=== PATIENT | male | born 1955 | race Caucasian/White ===

== ENCOUNTER 2016-11-03 10:30 | Emergency (ER) | payer BC ==
[2016-11-03] MEDS ORDERED: Sodium Chloride 0.9% 5 ML Syringe FLUSH PRN (10:51)
[2016-11-03 11:30] LABS: CHLORIDE,CL 106 mmol/L (98-115); SODIUM,NA 143 mmol/L (136-145)
[2016-11-03 11:36] VITALS: BP 178/86
[2016-11-03] MEDS ORDERED: Potassium Chloride 20 MEQ Tab.ER PO ONE (11:41)
--- NOTE | 2016-11-03 12:10 | EDM.PDOC ---
ED HPI GENERAL MEDICAL PROBLEM - General Chief Complaint: General Time Seen by Provider: 11/03/16 11:16 Source of Information: Reports: Patient History Limitations: Reports: No Limitations - History of Present Illness INITIAL COMMENTS - FREE TEXT/NARRATIVE: PT STATES HE DEVELOPED LOWER EXTREMITY WEAKNESS OVER PAST FEW DAYS AND BECAME WORSE TODAY. DENIES CP, SOB, CRUM, VISION CHANGES, OR SPEECH DIFFICULTY Onset: Today Location: Reports: Lower Extremity, Left, Lower Extremity, Right Severity: Mild Improves with: Reports: None Worsens with: Reports: None Associated Symptoms: Reports: No Other Symptoms - Related Data Allergies Allergy/AdvReac Type Severity Reaction Status Date / Time Iodinated Contrast- Oral and Allergy Airway Verified 11/03/16 10:41 IV Dye Tightness iodine Allergy Other Verified 11/03/16 10:41 contrast dye Allergy Severe Airway Uncoded 12/30/15 09:38 Tightness Home Meds: Home Meds Simvastatin [Zocor] 20 mg PO BEDTIME 08/27/13 [History] traZODone 75 mg PO BEDTIME 08/27/13 [History] Albuterol/Ipratropium [DuoNeb 3.0-0.5 MG/3 ML] 3 ml NEB BIDRT PRN 09/24/14 [ History] Lisinopril 40 mg PO BID 09/24/14 [History] PARoxetine [Paxil] 10 mg PO BEDTIME 09/24/14 [History] Triamcinolone Acetonide [Triamcinolone Acetonide 0.1% Crm] 15 gm TOP DAILY 09/24 [History] amLODIPine [Norvasc] 10 mg PO DAILY 09/24/14 [History] Tamsulosin [Flomax] 0.4 mg PO PCBREAKFAST #30 cap.er 01/06/15 [Rx] L.acidoph,Paracasei, B.lactis [Probiotic] 1 each PO DAILY 03/19/15 [History] Albuterol [Ventolin HFA] 2 puff INH Q4H PRN 11/03/16 [History] Potassium Chloride 20 meq PO BID 11/03/16 [History] Past Medical History HEENT History: Reports: Cataract Cardiovascular History: Reports: High Cholesterol, Hypertension Respiratory History: Reports: COPD, Sleep Apnea Gastrointestinal History: Reports: None Genitourinary History: Reports: BPH Musculoskeletal History: Reports: Back Pain, Chronic Neurological History: Reports: Other (See Below) Other Neuro History: dizziness Psychiatric History: Reports: Depression Hematologic History: Reports: Other (See Below) Other Hematologic History: hypokalemia Other Dermatologic History: eczemza - Infectious Disease History Infectious Disease History: Reports: Chicken Pox, Influenza, Measles, Mumps, Shingles - Past Surgical History HEENT Surgical History: Reports: Cataract Surgery Cardiovascular Surgical History: Reports: Other (See Below) GI Surgical History: Reports: Colonoscopy, EGD, Hernia Repair/Other Social & Family History - Family History Family Medical History: Noncontributory - Tobacco Use Smoking Status *Q: Current Every Day Smoker Years of Tobacco use: 45 Packs/Tins Daily: 1 Used Tobacco, but Quit: No Month Tobacco Last Used: 2009 Second Hand Smoke Exposure: Yes - Caffeine Use Caffeine Use: Reports: Coffee - Recreational Drug Use Recreational Drug Use: Yes Drug Use in Last 12 Months: Yes Recreational Drug Type: Reports: Marijuana/Hashish Recreational Drug Use Frequency: Weekly Recreational Drug Last Use: Pt. states a couple times a week- - Living Situation & Occupation Living situation: Reports: Occupation: Retired ED ROS GENERAL - Review of Systems Review Of Systems: ROS reveals no pertinent complaints other than HPI. Constitutional: Reports: No Symptoms HEENT: Reports: No Symptoms Respiratory: Reports: No Symptoms Cardiovascular: Reports: No Symptoms Endocrine: Reports: No Symptoms GI/Abdominal: Reports: No Symptoms : Reports: No Symptoms Musculoskeletal: Reports: No Symptoms Skin: Reports: No Symptoms Neurological: Reports: Difficulty Walking, Weakness Psychiatric: Reports: No Symptoms Hematologic/Lymphatic: Reports: No Symptoms Immunologic: Reports: No Symptoms ED EXAM, GENERAL - Physical Exam Exam: See Below Exam Limited By: No Limitations General Appearance: Alert, WD/WN, No Apparent Distress Eye Exam: Bilateral Eye: Normal Inspection Throat/Mouth: Normal Inspection, Normal Oropharynx, No Airway Compromise Head: Atraumatic, Normocephalic Neck: Normal Inspection, Supple, Non-Tender, Full Range of Motion Respiratory/Chest: No Respiratory Distress, Lungs Clear, Normal Breath Sounds, No Accessory Muscle Use, Chest Non-Tender Cardiovascular: Regular Rate, Rhythm, No Murmur Back Exam: Normal Inspection Extremities: Normal Inspection, Normal Range of Motion, Non-Tender, No Pedal Edema Neurological: Alert, Oriented, CN II-XII Intact, Normal Cognition, No Motor/ Sensory Deficits Psychiatric: Normal Affect, Normal Mood Skin Exam: Warm, Dry, Intact, Normal Color, No Rash Lymphatic: No Adenopathy Course - Vital Signs Last Recorded V/S: Last Vital Signs Temp 98.9 F 11/03/16 10:37 Pulse 80 11/03/16 10:37 Resp 20 11/03/16 10:37 BP 178/86 H 11/03/16 10:37 Pulse Ox 96 11/03/16 10:37 - Orders/Labs/Meds Orders: Active Orders 24 hr Category Date Time Status Sodium Chloride 0.9% [Syrex Flush] Med 11/03/16 10:51 Active 5 ml FLUSH Q8HR PRN Saline Lock Insert [OM.PC] Routine Oth 11/03/16 10:51 Ordered Medication Orders Sodium Chloride (Syrex Flush) 5 ml FLUSH Q8HR PRN PRN Reason: Keep Vein Open Labs: Laboratory Tests 11/03/16 11/03/16 11/03/16 Range/Units 11:05 11:05 11:40 WBC 7.6 (5.0-10.0) 10^3/uL RBC 5.16 (4.50-6.00) 10^6/uL Hgb 15.3 (13.0-17.0) g/dL Hct 45.4 (40.0-52.0) % MCV 87.9 (82.0-92.0) fL MCH 29.7 (27.0-31.0) pg MCHC 33.7 (32.0-36.0) g/dL RDW 13.3 (11.5-14.5) % Plt Count 185 (150-300) 10^3/uL MPV 7.8 (7.4-10.4) fL Neut % (Auto) 67.7 (50.0-70.0) % Lymph % (Auto) 18.6 L (20.0-40.0) % [place] % (Auto) 9.6 H (2.0-8.0) % Eos % (Auto) 3.6 H (1.0-3.0) % Baso % (Auto) 0.5 (0.0-1.0) % Neut # (Auto) 5.2 (2.5-7.0) 10^3/uL Lymph # (Auto) 1.4 (1.0-4.0) 10^3/uL [place] # (Auto) 0.7 (0.1-0.8) 10^3/uL Eos # (Auto) 0.3 (0.1-0.3) 10^3/uL Baso # (Auto) 0.0 (0.0-0.1) 10^3/uL Sodium 143 (136-145) mmol/L Potassium 3.2 L (3.3-5.3) mmol/L Chloride 106 (98-115) mmol/L Carbon Dioxide 25.6 (21.0-32.0) mmol/L BUN 9 (6-25) mg/dL Creatinine 0.65 (0.51-1.17) mg/dL Est Cr Clr Drug Dosing TNP Estimated GFR (MDRD) > 60 mL/min Glucose 144 H (70-110) mg/dL Calcium 9.0 (8.7-10.3) mg/dL Total Bilirubin 0.4 (0.2-1.0) mg/dL AST 16 (15-37) U/L ALT 22 (12-78) U/L Alkaline Phosphatase 118 H (46-116) IU/L Total Protein 7.4 (6.4-8.2) g/dL Albumin 4.09 (3.00-4.80) g/dL Specimen Type Urinvoid Urine Color Yellow (YELLOW) Urine Appearance Clear (CLEAR) Urine pH 7.5 (5.0-9.0) Ur Specific Foss 1.020 (1.005-1.030) Urine Protein Negative (NEGATIVE) mg/dL Urine Glucose (UA) Negative (NEGATIVE) mg/dL Urine Ketones Negative (NEGATIVE) mg/dL Urine Occult Blood Trace-intact H (NEGATIVE) Urine Nitrite Negative (NEGATIVE) Urine Bilirubin Negative (NEGATIVE) Urine Urobilinogen 0.2 (0.2-1.0) E.U./dL Ur Leukocyte Esterase Negative (NEGATIVE) Urine RBC 0-5 /HPF Urine WBC 0-5 /HPF Ur Epithelial Cells Rare /LPF Urine Bacteria Occasional (NONE TO FEW) /HPF Urine Mucus Few H (NEGATIVE) /LPF Meds: Medications Generic Name Dose Route Start Last Admin Trade Name Freq PRN Reason Stop Dose Admin Sodium Chloride 5 ml 11/03/16 10:51 Syrex Flush FLUSH Q8HR PRN Keep Vein Open Discontinued Medications Generic Name Dose Route Start Last Admin Trade Name Caitlin PRN Reason Stop Dose Admin Potassium Chloride 40 meq 11/03/16 11:41 11/03/16 12:00 Klor-Con M20 PO 11/03/16 11:42 40 meq ONETIME ONE Administration - Re-Assessments/Exams Free Text/Narrative Re-Assessment/Exam: 11/03/16 12:11 PT AFEBRILE, NONTOXIC APPEARING, VSS, K+GIVEN. Departure - Departure Time of Disposition: 12:12 Disposition: Home, Self-Care 01 Condition: Good Clinical Impression: Hypokalemia Lower extremity weakness Qualifiers: Laterality: bilateral Qualified Code(s): R29.898 - Other symptoms and signs involving the musculoskeletal system - Discharge Information Instructions: Potassium Content of Foods, Hypokalemia, Muscle Cramps and Spasms , [id number] Referrals: Stacey Cohen MD [Primary Care Provider] - Additional Instructions: FOLLOW UP WITH DR HUANG IN NEXT 2-3 DAYS. RETURN TO ER SOONER IF SYMPTOMS CONTINUE - My Orders Last 24 Hours: My Active Orders 11/03/16 10:51 Sodium Chloride 0.9% [Syrex Flush] 5 ml FLUSH Q8HR PRN Saline Lock Insert [OM.PC] Routine - Assessment/Plan Last 24 Hours: My Active Orders 11/03/16 10:51 Sodium Chloride 0.9% [Syrex Flush] 5 ml FLUSH Q8HR PRN Saline Lock Insert [OM.PC] Routine Assessment:: HYPOKALEMIA / LEG WEAKNESS Plan: F/U AT CLINIC
== END 2016-11-03 12:25 | disposition home or self-care (01) ==
LOC: KA.ED 10:30
DX: R29.898 Other symptoms and signs involving the musculoskeletal system (principal); E87.6 Hypokalemia; I10 Essential (primary) hypertension; J44.9 Chronic obstructive pulmonary disease, unspecified; F32.9 Major depressive disorder, single episode, unspecified; E78.00 Pure hypercholesterolemia, unspecified; F17.210 Nicotine dependence, cigarettes, uncomplicated; Z91.041 Radiographic dye allergy status; Z79.899 Other long term (current) drug therapy
CPT/HCPCS: 80053; 81001; 85025; 99283; A9270

== ENCOUNTER 2017-08-14 18:17 | Emergency (ER) | payer BC ==
[2017-08-14] MEDS ORDERED: Albuterol/Ipratropium 3.0-0.5 MG/3 ML Neb Soln NEB ONE (18:41)
[2017-08-14] MEDS ORDERED: Sodium Chloride 0.9% 5 ML Syringe FLUSH PRN (18:46)
--- NOTE | 2017-08-14 18:58 | EDM.PDOC ---
ED HPI GENERAL MEDICAL PROBLEM - General Chief Complaint: Respiratory Problem Stated Complaint: SHORTNESS OF BREATH Time Seen by Provider: 08/14/17 18:40 Source of Information: Reports: Patient History Limitations: Reports: No Limitations - History of Present Illness INITIAL COMMENTS - FREE TEXT/NARRATIVE: Patient is a 61-year-old gentleman who presents to the emergency department this evening with a complaint of shortness of breath. Patient states that symptoms began about 3 days ago and is progressively getting worse. States that shortness of breath began with ambulation few days ago, but now seems to be all the time. Admits to cough with clear sputum production. Smokes 1-1/2 packs of cigarettes per day and has a history of COPD. Patient denies chest pain, fever, shortness of breath, extremity edema, nausea, vomiting, or recent change in medication. Onset: Gradual Duration: Day(s): Quality: Reports: Other (No chest pain) Severity: Mild Improves with: Reports: Rest Worsens with: Reports: Other (Ambulation) Context: Reports: Exercise Associated Symptoms: Reports: Cough, cough w sputum, Shortness of Breath. Denies: Chest Pain, Fever/Chills, Nausea/Vomiting Treatments DETECTIVE LIEUTENANT: Reports: Other Medication(s) Other Treatments DETECTIVE LIEUTENANT: neb treatments - Related Data Allergies Allergy/AdvReac Type Severity Reaction Status Date / Time Iodinated Contrast- Oral and Allergy Airway Verified 08/14/17 18:40 IV Dye Tightness iodine Allergy Other Verified 08/14/17 18:40 contrast dye Allergy Severe Airway Uncoded 12/30/15 09:38 Tightness Home Meds: Home Meds Simvastatin [Zocor] 20 mg PO BEDTIME 08/27/13 [History] traZODone 75 mg PO BEDTIME 08/27/13 [History] Albuterol/Ipratropium [DuoNeb 3.0-0.5 MG/3 ML] 3 ml NEB BIDRT PRN 09/24/14 [ History] Lisinopril 40 mg PO BID 09/24/14 [History] PARoxetine [Paxil] 10 mg PO BEDTIME 09/24/14 [History] Triamcinolone Acetonide [Triamcinolone Acetonide 0.1% Crm] 15 gm TOP DAILY 09/24 [History] amLODIPine [Norvasc] 10 mg PO DAILY 08/09/15 [History] Tamsulosin [Flomax] 0.4 mg PO PCBREAKFAST #30 cap.er 01/06/15 [Rx] L.acidoph,Paracasei, B.lactis [Probiotic] 1 each PO DAILY 03/19/15 [History] Potassium Chloride 20 meq PO BID 11/03/16 [History] predniSONE [Prednisone] 20 mg PO DAILY #5 tablet 08/14/17 [Rx] Past Medical History HEENT History: Reports: Cataract Cardiovascular History: Reports: High Cholesterol, Hypertension Respiratory History: Reports: COPD, Sleep Apnea Gastrointestinal History: Reports: None Genitourinary History: Reports: BPH Musculoskeletal History: Reports: Back Pain, Chronic Neurological History: Reports: Other (See Below) Other Neuro History: dizziness Psychiatric History: Reports: Depression Hematologic History: Reports: Other (See Below) Other Hematologic History: hypokalemia Other Dermatologic History: eczemza - Infectious Disease History Infectious Disease History: Reports: Chicken Pox, Influenza, Measles, Mumps, Shingles - Past Surgical History HEENT Surgical History: Reports: Cataract Surgery Cardiovascular Surgical History: Reports: Other (See Below) GI Surgical History: Reports: Colonoscopy, EGD, Hernia Repair/Other Social & Family History - Family History Family Medical History: Noncontributory - Caffeine Use Caffeine Use: Reports: Coffee - Living Situation & Occupation Living situation: Reports: Occupation: Retired ED ROS GENERAL - Review of Systems Review Of Systems: ROS reveals no pertinent complaints other than HPI. Constitutional: Reports: No Symptoms HEENT: Reports: No Symptoms Respiratory: Reports: Shortness of Breath, Cough, Sputum. Denies: Pleuritic Chest Pain Cardiovascular: Reports: No Symptoms. Denies: Chest Pain Endocrine: Reports: No Symptoms GI/Abdominal: Reports: No Symptoms : Reports: No Symptoms Musculoskeletal: Reports: No Symptoms Skin: Reports: No Symptoms Neurological: Reports: No Symptoms Psychiatric: Reports: No Symptoms Hematologic/Lymphatic: Reports: No Symptoms Immunologic: Reports: No Symptoms ED EXAM, GENERAL - Physical Exam Exam: See Below Exam Limited By: No Limitations General Appearance: Alert, WD/WN, No Apparent Distress Nose: Normal Inspection, Normal Mucosa, No Blood Throat/Mouth: Normal Inspection, Normal Oropharynx, No Airway Compromise Head: Atraumatic, Normocephalic Neck: Normal Inspection, Supple Respiratory/Chest: No Respiratory Distress, Decreased Breath Sounds (Bibasilar) Cardiovascular: Regular Rate, Rhythm, No Murmur GI/Abdominal: Normal Bowel Sounds, Soft, Non-Tender Back Exam: Normal Inspection. No: CVA Tenderness (L), CVA Tenderness (R) Extremities: Normal Inspection, No Pedal Edema Neurological: Alert, Oriented, Normal Cognition Psychiatric: Normal Affect, Normal Mood Skin Exam: Warm, Dry, Intact, Normal Color, No Rash Lymphatic: No Adenopathy Course - Vital Signs Last Recorded V/S: Last Vital Signs Temp 97.0 F 08/14/17 18:31 Pulse 78 08/14/17 18:31 Resp 22 H 08/14/17 18:31 BP 178/74 H 08/14/17 18:31 Pulse Ox 93 L 08/14/17 18:31 - Orders/Labs/Meds Orders: Active Orders 24 hr Category Date Time Status Peripheral IV Care [RC] . DIRECTED Care 08/14/17 18:46 Ordered RT Aerosol Therapy [RC] ASDIRECTED Care 08/14/17 18:42 Ordered Chest 2V [CR] Stat Exams 08/14/17 18:41 Ordered B-TYPE NATRIURETIC PEPTIDE,BNP [CHEM] Stat Lab 08/14/17 18:41 Ordered CBC WITH AUTO DIFF [HEME] Stat Lab 08/14/17 18:41 Ordered COMPREHENSIVE METABOLIC PN,CMP [CHEM] Stat Lab 08/14/17 18:41 Ordered Sodium Chloride 0.9% [Syrex Flush] Med 08/14/17 18:46 Ordered 5 ml FLUSH Q8HR PRN Peripheral IV Insertion Adult [OM.PC] Routine Oth 08/14/17 18:46 Ordered Meds: Medications Discontinued Medications Generic Name Dose Route Start Last Admin Trade Name Freq PRN Reason Stop Dose Admin Albuterol/Ipratropium 3 ml 08/14/17 18:41 Duoneb 3.0-0.5 Mg/3 Ml NEB 08/14/17 18:42 ONETIME ONE - Radiology Interpretation Free Text/Narrative:: Chest x-ray shows COPD without pneumonia or edema - Re-Assessments/Exams Free Text/Narrative Re-Assessment/Exam: 08/14/17 19:56 Patient afebrile, nontoxic appearing, vital signs stable, sats 95% on room air. Patient feels much better following albuterol Atrovent updraft and Solu- Medrol IV. Patient denies any chest pain. Patient be given a prescription for prednisone and follow-up at the clinic next week. Departure - Departure Time of Disposition: 19:57 Disposition: Home, Self-Care 01 Condition: Good Clinical Impression: COPD with acute exacerbation - Discharge Information Instructions: Chronic Obstructive Pulmonary Disease Exacerbation, [id number] Referrals: Stacey Cohen MD [Primary Care Provider] - Additional Instructions: Follow-up at clinic next week. Return to emergency department sooner if symptoms continue or worsen. - My Orders Last 24 Hours: My Active Orders 08/14/17 18:41 Chest 2V [CR] Stat B-TYPE NATRIURETIC PEPTIDE,BNP [CHEM] Stat CBC WITH AUTO DIFF [HEME] Stat COMPREHENSIVE METABOLIC PN,CMP [CHEM] Stat 08/14/17 18:42 RT Aerosol Therapy [RC] ASDIRECTED 08/14/17 18:46 Peripheral IV Care [RC] . DIRECTED Sodium Chloride 0.9% [Syrex Flush] 5 ml FLUSH Q8HR PRN Peripheral IV Insertion Adult [OM.PC] Routine - Assessment/Plan Last 24 Hours: My Active Orders 08/14/17 18:41 Chest 2V [CR] Stat B-TYPE NATRIURETIC PEPTIDE,BNP [CHEM] Stat CBC WITH AUTO DIFF [HEME] Stat COMPREHENSIVE METABOLIC PN,CMP [CHEM] Stat 08/14/17 18:42 RT Aerosol Therapy [RC] ASDIRECTED 08/14/17 18:46 Peripheral IV Care [RC] . DIRECTED Sodium Chloride 0.9% [Syrex Flush] 5 ml FLUSH Q8HR PRN Peripheral IV Insertion Adult [OM.PC] Routine Assessment:: COPD exacerbation Plan: Follow-up at the clinic next week
[2017-08-14] MEDS ORDERED: methylPREDNISolone Sodium Succinate 125 MG/2 ML SDV IVPUSH ONE (19:12)
[2017-08-14 19:14] LABS: CHLORIDE,CL 105 mmol/L (98-115); SODIUM,NA 141 mmol/L (136-145)
[2017-08-15 01:44] VITALS: BP 143/65
== END 2017-08-14 20:15 | disposition home or self-care (01) ==
LOC: KA.ED 18:17
DX: J44.1 Chronic obstructive pulmonary disease with (acute) exacerbation (principal); E78.00 Pure hypercholesterolemia, unspecified; I10 Essential (primary) hypertension; Z79.899 Other long term (current) drug therapy
CPT/HCPCS: 36415; 80053; 83880; 85025; 94640; 96374; 99285; J2930

== ENCOUNTER 2018-08-09 13:20 | Emergency (ER) | payer BC, OTHER, SELFPAY ==
[2018-08-09] MEDS ORDERED: methylPREDNISolone Sodium Succinate 125 MG/2 ML SDV IVPUSH ONE (13:54)
[2018-08-09] MEDS ORDERED: Sodium Chloride 0.9% 1,000 ML IV ONE (13:54)
[2018-08-09] MEDS ORDERED: Albuterol/Ipratropium 3.0-0.5 MG/3 ML Neb Soln NEB ONE (13:54)
[2018-08-09] MEDS ORDERED: Sodium Chloride 0.9% 10 ML Syringe FLUSH PRN (13:54)
--- NOTE | 2018-08-09 14:09 | EDM.PDOC ---
ED HPI GENERAL MEDICAL PROBLEM - General Chief Complaint: Respiratory Problem Stated Complaint: shortness of breath Time Seen by Provider: 08/09/18 13:40 Source of Information: Reports: Patient History Limitations: Reports: No Limitations - History of Present Illness INITIAL COMMENTS - FREE TEXT/NARRATIVE: 62 YO WM presents to ER with progressive shortness of breath over the last 2 days. Pt reports PMH of COPD and states that he's had worsening in his breathing over the last month, but yesterday it became worse and unrelieved by his home nebulizer treatments. Pt reports mild substernal chest pain with productive cough and congestion. Pt reports his home nebulizers improve his symptoms for about 2 hours and then he feels like he needs an additional treatment. Pt denies fever/chills, no weakness, no nausea/vomiting, no diaphoresis and no lightheadedness. Onset Date: 08/08/18 Duration: Day(s): (2), Chronic, Recurring, Waxing/Waning Location: Reports: Chest, Generalized Quality: Reports: Dull Severity: Mild Improves with: Reports: Medication Worsens with: Reports: Movement Associated Symptoms: Reports: Chest Pain, cough w sputum, Headaches, Shortness of Breath. Denies: Confusion, Diaphoresis, Fever/Chills, Loss of Appetite, Malaise, Nausea/Vomiting, Rash, Syncope - Related Data Allergies Allergy/AdvReac Type Severity Reaction Status Date / Time Iodinated Contrast- Oral and Allergy Airway Verified 08/09/18 13:41 IV Dye Tightness iodine Allergy Other Verified 08/09/18 13:41 contrast dye Allergy Severe Airway Uncoded 08/09/18 13:41 Tightness Home Meds: Home Meds Simvastatin [Zocor] 20 mg PO BEDTIME 08/27/13 [History] traZODone 75 mg PO BEDTIME 08/27/13 [History] Albuterol/Ipratropium [DuoNeb 3.0-0.5 MG/3 ML] 3 ml NEB BIDRT PRN 09/24/14 [ History] Lisinopril 40 mg PO BID 09/24/14 [History] PARoxetine [Paxil] 10 mg PO BEDTIME 09/24/14 [History] Triamcinolone Acetonide [Triamcinolone Acetonide 0.1% Crm] 15 gm TOP DAILY PRN 08/09/15 [History] amLODIPine [Norvasc] 10 mg PO DAILY 09/24/14 [History] Tamsulosin [Flomax] 0.4 mg PO PCBREAKFAST #30 cap.er 01/06/15 [Rx] L.acidoph,Paracasei, B.lactis [Probiotic] 1 each PO DAILY 03/19/15 [History] Potassium Chloride 20 meq PO TID 11/03/16 [History] Albuterol [Ventolin HFA] 2 puff INH Q4H PRN 08/09/18 [History] predniSONE [Prednisone] 20 mg PO DAILY #15 tablet 08/09/18 [Rx] Past Medical History HEENT History: Reports: Cataract Cardiovascular History: Reports: High Cholesterol, Hypertension Respiratory History: Reports: COPD, Sleep Apnea Gastrointestinal History: Reports: None Genitourinary History: Reports: BPH Musculoskeletal History: Reports: Back Pain, Chronic Neurological History: Reports: Other (See Below) Other Neuro History: dizziness Psychiatric History: Reports: Depression Hematologic History: Reports: Other (See Below) Other Hematologic History: hypokalemia Other Dermatologic History: eczemza - Infectious Disease History Infectious Disease History: Reports: Chicken Pox, Influenza, Measles, Mumps, Shingles - Past Surgical History HEENT Surgical History: Reports: Cataract Surgery Cardiovascular Surgical History: Reports: Other (See Below) GI Surgical History: Reports: Colonoscopy, EGD, Hernia Repair/Other Social & Family History - Family History Family Medical History: Noncontributory - Tobacco Use Smoking Status *Q: Current Every Day Smoker Years of Tobacco use: 46 Packs/Tins Daily: 1 Used Tobacco, but Quit: No - Caffeine Use Caffeine Use: Reports: Coffee - Recreational Drug Use Recreational Drug Use: No - Living Situation & Occupation Living situation: Reports: Occupation: Retired ED ROS GENERAL - Review of Systems Review Of Systems: See Below Constitutional: Reports: No Symptoms HEENT: Reports: No Symptoms Respiratory: Reports: Shortness of Breath, Cough, Sputum Cardiovascular: Reports: Chest Pain Endocrine: Reports: No Symptoms GI/Abdominal: Reports: No Symptoms : Reports: No Symptoms Musculoskeletal: Reports: No Symptoms Skin: Reports: No Symptoms Neurological: Reports: No Symptoms Psychiatric: Reports: No Symptoms Hematologic/Lymphatic: Reports: No Symptoms Immunologic: Reports: No Symptoms ED EXAM, GENERAL - Physical Exam Exam: See Below Exam Limited By: No Limitations General Appearance: Alert, WD/WN, No Apparent Distress Nose: Normal Inspection, Normal Mucosa, No Blood Throat/Mouth: Normal Inspection, Normal Lips, Normal Teeth, Normal Gums, Normal Oropharynx, Normal Voice, No Airway Compromise Head: Atraumatic, Normocephalic Neck: Normal Inspection, Supple, Non-Tender, Full Range of Motion Respiratory/Chest: No Respiratory Distress, No Accessory Muscle Use, Chest Non- Tender, Decreased Breath Sounds. No: Accessory Muscle Use, Retractions, Splinting, Prolonged Expiration Cardiovascular: Normal Peripheral Pulses, Regular Rate, Rhythm, No Edema, No Gallop, No JVD, No Murmur, No Rub GI/Abdominal: Normal Bowel Sounds, Soft, Non-Tender, No Organomegaly, No Distention, No Abnormal Bruit, No Mass Back Exam: Normal Inspection, Full Range of Motion, NT Extremities: Normal Inspection, Normal Range of Motion, Non-Tender, Normal Capillary Refill, No Pedal Edema Neurological: Alert, Oriented, CN II-XII Intact, Normal Cognition, Normal Gait, Normal Reflexes, No Motor/Sensory Deficits Psychiatric: Normal Affect, Normal Mood Skin Exam: Warm, Dry, Intact, Normal Color, No Rash Lymphatic: No Adenopathy EKG INTERPRETATION EKG Date: 08/09/18 Time: 13:42 Rhythm: NSR Rate (Beats/Min): 77 [place]: Normal P-Wave: Present QRS: RBBB ST-T: Normal QT: Normal Course - Vital Signs Last Recorded V/S: Last Vital Signs Temp 36.6 C 08/09/18 13:20 Pulse 71 08/09/18 14:25 Resp 16 08/09/18 14:25 BP 169/67 H 08/09/18 14:25 Pulse Ox 94 L 08/09/18 14:25 - Orders/Labs/Meds Orders: Active Orders 24 hr Category Date Time Status EKG Documentation Completion [RC] ASDIRECTED Care 08/09/18 13:30 Active Peripheral IV Care [RC] . DIRECTED Care 08/09/18 13:54 Ordered RT Aerosol Therapy [RC] ASDIRECTED Care 08/09/18 13:55 Ordered CXR [Chest 2V] [CR] Stat Exams 08/09/18 13:30 Ordered Sodium Chloride 0.9% @ 999 MLS/HR (1000ml) Med 08/09/18 13:54 Ordered Sodium Chloride 0.9% [Normal Saline] 1,000 ml IV .BOLUS Sodium Chloride 0.9% [Saline Flush] Med 08/09/18 13:54 Ordered 10 ml FLUSH Q8HR PRN Peripheral IV Insertion Adult [OM.PC] Routine Oth 08/09/18 13:54 Ordered EKG 12 Lead [EK] Routine Ther 08/09/18 13:30 Ordered Medication Orders Sodium Chloride (Normal Saline) 1,000 mls @ 999 mls/hr IV .BOLUS ONE Stop: 08/09/18 14:54 Last Admin: 08/09/18 14:12 Dose: 999 mls/hr Sodium Chloride (Saline Flush) 10 ml FLUSH Q8HR PRN PRN Reason: keep vein open Last Admin: 08/09/18 13:45 Dose: 10 ml Labs: Laboratory Tests 08/09/18 08/09/18 Range/Units 13:50 13:50 WBC 7.71 (5.00-10.00) 10^3/uL RBC 5.19 (4.50-6.00) 10^6/uL Hgb 16.0 (13.0-17.0) g/dL Hct 46.6 (40.0-52.0) % MCV 89.8 (82.0-92.0) fL MCH 30.8 (27.0-31.0) pg MCHC 34.3 (32.0-36.0) g/dL RDW 13.7 (11.5-14.5) % Plt Count 198 (150-400) 10^3/uL MPV 9.4 (7.4-10.4) fL Immature Gran % (Auto) 0.1 (0.0-5.0) % Neut % (Auto) 62.8 (50.0-70.0) % Lymph % (Auto) 21.5 (20.0-40.0) % [place] % (Auto) 10.6 H (2.0-8.0) % Eos % (Auto) 4.2 H (1.0-3.0) % Baso % (Auto) 0.8 (0.0-1.0) % Immature Gran # (Auto) 0.01 (0.00-0.50) 10^3/uL Neut # (Auto) 4.84 (2.50-7.00) 10^3/uL Lymph # (Auto) 1.66 (1.00-4.00) 10^3/uL [place] # (Auto) 0.82 H (0.10-0.80) 10^3/uL Eos # (Auto) 0.32 H (0.10-0.30) 10^3/uL Baso # (Auto) 0.06 (0.00-0.10) 10^3/uL Sodium 145 (136-145) mmol/L Potassium 3.2 L (3.3-5.3) mmol/L Chloride 107 (98-115) mmol/L Carbon Dioxide 27.4 (21.0-32.0) mmol/L Anion Gap 13.8 (5-15) mmol/L BUN 9 (6-25) mg/dL Creatinine 0.70 (0.51-1.17) mg/dL Est Cr Clr Drug Dosing 123.12 mL/min Estimated GFR (MDRD) > 60 mL/min Glucose 83 (75 - 99) mg/dL Calcium 8.9 (8.7-10.3) mg/dL Total Bilirubin 0.3 (0.2-1.0) mg/dL AST 16 (15-37) U/L ALT 16 (12-78) U/L Alkaline Phosphatase 115 (46-116) IU/L Creatine Kinase 87 (26-276) U/L CK-MB (CK-2) 1.80 (0.00-4.30) ng/mL Troponin I 0.06 (0.00-0.070) ng/mL Total Protein 7.6 (6.4-8.2) g/dL Albumin 4.10 (3.00-4.80) g/dL Meds: Medications Generic Name Dose Route Start Last Admin Trade Name Freq PRN Reason Stop Dose Admin Sodium Chloride 1,000 mls @ 999 mls/hr 08/09/18 13:54 08/09/18 14:12 Normal Saline IV 08/09/18 14:54 999 mls/hr .BOLUS ONE Administration Sodium Chloride 10 ml 08/09/18 13:54 08/09/18 13:45 Saline Flush FLUSH 10 ml Q8HR PRN Administration keep vein open Discontinued Medications Generic Name Dose Route Start Last Admin Trade Name Freq PRN Reason Stop Dose Admin Albuterol/Ipratropium 3 ml 08/09/18 13:54 08/09/18 14:10 Duoneb 3.0-0.5 Mg/3 Ml NEB 08/09/18 13:55 3 ml ONETIME ONE Administration Methylprednisolone Sodium Succinate 125 mg 08/09/18 13:54 08/09/18 14:13 Solu-Medrol IVPUSH 08/09/18 13:55 125 mg ONETIME ONE Administration - Radiology Interpretation Free Text/Narrative:: CXR- hyperinflated without evidence of infiltrates Departure - Departure Time of Disposition: 15:04 Disposition: Home, Self-Care 01 Condition: Good Clinical Impression: COPD with exacerbation - Discharge Information Prescriptions: predniSONE [Prednisone] 20 mg PO DAILY #15 tablet Instructions: Chronic Obstructive Pulmonary Disease, [id number] Referrals: Stacey Cohen MD [Primary Care Provider] - Forms: ED Department Discharge Additional Instructions: 1. Discharge home 2. prednisone 60mg PO QD x 5 days 3. duoneb tx Q4 and PRN 4. follow up with Dr Echavarria 08/11/2018 1pm for further evaluation and treatment 5. return to ER for worsening symptoms - My Orders Last 24 Hours: My Active Orders 08/09/18 13:30 EKG Documentation Completion [RC] ASDIRECTED CXR [Chest 2V] [CR] Stat EKG 12 Lead [EK] Routine 08/09/18 13:54 Peripheral IV Care [RC] . DIRECTED Sodium Chloride 0.9% @ 999 MLS/HR (1000ml) Sodium Chloride 0.9% [Normal Saline] 1,000 ml IV .BOLUS Sodium Chloride 0.9% [Saline Flush] 10 ml FLUSH Q8HR PRN Peripheral IV Insertion Adult [OM.PC] Routine 08/09/18 13:55 RT Aerosol Therapy [RC] ASDIRECTED - Assessment/Plan Last 24 Hours: My Active Orders 08/09/18 13:30 EKG Documentation Completion [RC] ASDIRECTED CXR [Chest 2V] [CR] Stat EKG 12 Lead [EK] Routine 08/09/18 13:54 Peripheral IV Care [RC] . DIRECTED Sodium Chloride 0.9% @ 999 MLS/HR (1000ml) Sodium Chloride 0.9% [Normal Saline] 1,000 ml IV .BOLUS Sodium Chloride 0.9% [Saline Flush] 10 ml FLUSH Q8HR PRN Peripheral IV Insertion Adult [OM.PC] Routine 08/09/18 13:55 RT Aerosol Therapy [RC] ASDIRECTED Assessment:: 1. COPD exacerbation Plan: 1. Discharge home 2. prednisone 60mg PO QD x 5 days 3. duoneb tx Q4 and PRN 4. follow up with Dr Echavarria 08/11/2018 1pm for further evaluation and treatment 5. return to ER for worsening symptoms
[2018-08-09 14:34] LABS: ANION GAP 13.8 mmol/L (5-15); CHLORIDE,CL 107 mmol/L (98-115); SODIUM,NA 145 mmol/L (136-145)
--- NOTE | 2018-08-09 14:41 | CR ---
[id number] RAD/RAD Chest PA And Lateral EXAM: FRONTAL AND LATERAL CHEST INDICATION: Shortness of breath. COMPARISON: August 14, 2017. DISCUSSION: Hyperinflation is consistent with chronic obstructive pulmonary disease. Mild basilar scarring or atelectasis with no definite infiltrates. Normal heart size. IMPRESSION: 1. Chronic obstructive pulmonary disease. No acute findings. Reginaldo Jacobo MD 08/09/18 [id number] Thank you for allowing us to participate in the care of your patient.
[2018-08-09 14:44] VITALS: BP 169/67
== END 2018-08-09 15:27 | disposition home or self-care (01) ==
LOC: KA.ED 13:20
DX: J45.901 Unspecified asthma with (acute) exacerbation (principal); F17.210 Nicotine dependence, cigarettes, uncomplicated; I10 Essential (primary) hypertension; E78.00 Pure hypercholesterolemia, unspecified; F32.9 Major depressive disorder, single episode, unspecified; Z79.899 Other long term (current) drug therapy; Z91.09 Other allergy status, other than to drugs and biological substances; Z91.041 Radiographic dye allergy status
CPT/HCPCS: 71046; 80053; 82550; 82553; 84484; 85025; 93005; 94640; 96361; 96374; 99285-25; J2930; J7030; J7620-GY

== ENCOUNTER 2018-10-05 08:39 | Day surgery (SDC) | payer MEDICARE, BC ==
[2018-10-05] MEDS ORDERED: Propofol 200 MG/20 ML SDV ONE (08:41)
[2018-10-05] MEDS ORDERED: Lactated Ringers 1,000 ML IV SCH (08:45)
[2018-10-05] MEDS ORDERED: Sodium Chloride 0.9% 10 ML Syringe FLUSH PRN (08:45)
--- NOTE | 2018-10-05 09:59 | PCM.PN ---
- General Info Date of Service: 10/05/18 - Review of Systems Systems Review Comment:: 62-year-old male referred for screening colonoscopy. He states his last colon exam was over 10 years ago. He denies any recent changes in his bowel pattern. His recent history and physical is reviewed and no significant changes are noted. I discussed the proposed colonoscopy with the patient. Risks such as but not limited to bleeding and GI injury reviewed. He agrees to proceed. - Patient Data Vitals - Most Recent: Last Vital Signs Temp 98.1 F 10/05/18 08:45 Pulse 68 10/05/18 08:45 Resp 20 10/05/18 08:45 BP 157/78 H 10/05/18 08:45 Pulse Ox 95 10/05/18 08:45 Med Orders - Current: Current Medications Lactated Ringer's (Ringers, Lactated) 1,000 mls @ 50 mls/hr IV ASDIRECTED JOEL Sodium Chloride (Saline Flush) 10 ml FLUSH Q8HR PRN PRN Reason: keep vein open Discontinued Medications Propofol (Diprivan 20 Ml) Confirm Administered Dose 400 mg .ROUTE .STK-MED ONE Stop: 10/05/18 08:42 - Problem List Review Problem List Initiated/Reviewed/Updated: Yes - My Orders Last 24 Hours: My Active Orders 10/04/18 15:04 Resuscitation Status Routine 10/05/18 08:45 Peripheral IV Care [RC] . DIRECTED Vital Signs [RC] PER UNIT ROUTINE Lactated Ringers [Ringers, Lactated] 1,000 ml IV ASDIRECTED Sodium Chloride 0.9% [Saline Flush] 10 ml FLUSH Q8HR PRN Peripheral IV Insertion Adult [OM.PC] Routine 10/05/18 09:00 Patient to Empty Bladder [RC] ASDIRECTED 10/05/18 09:45 Verify Patient Consent Obtain [RC] ASDIRECTED 10/05/18 Breakfast Nothing Per Oral Diet [DIET] - Assessment Assessment:: Colon cancer screening - Plan Plan:: Colonoscopy
[2018-10-05] MEDS ORDERED: Propofol 200 MG/20 ML SDV IV ONE (10:00)
--- NOTE | 2018-10-05 10:46 | PCM.OPNOTE ---
- General Post-Op/Procedure Note Date of Surgery/Procedure: 10/05/18 Operative Procedure(s): Colonoscopy with polypectomy Findings: Small cecal polyp otherwise normal colon Pre Op Diagnosis: Colon Cancer Screening Post-Op Diagnosis: Colon Polyp Anesthesia Technique: MAC Primary Surgeon: Trace Valerio Pathology: Cecal Polyp Output, Urine Amount: 0 EBL in mLs: 0 Complications: None Condition: Good
[2018-10-05 13:08] VITALS: BP 91/50; PULSE 57
--- NOTE | 2018-10-05 16:10 | OR ---
DATE OF SURGERY: 10/05/2018 SURGEON: Trace Valerio MD PREOPERATIVE DIAGNOSIS: Colon cancer screening. POSTOPERATIVE DIAGNOSIS: Cecal polyp. OPERATION PERFORMED: Colonoscopy with polypectomy. INDICATIONS FOR SURGERY: This 62-year-old male is referred today for colonoscopy. His last colonoscopy was over 10 years ago and he is here for a screening exam. FINDINGS: A single small polyp was noted on today's exam. This is located in the cecum and it is 4 mm in size and sessile in configuration. The remainder of the colon appears normal. PROCEDURE: The patient was taken to the operating room. He was given intravenous sedation and with him in the left lateral decubitus position, digital rectal exam was performed showing no rectal masses. The Olympus colonoscope was inserted into the rectum. Retroflexed examination of the rectal canal is performed. The scope was then carefully advanced under direct visualization through the entire length of the colon until the cecum is reached. Cecal acquisition is confirmed by noting the normal internal cecal anatomy including the appendiceal orifice and ileocecal valve. The light was also noted to transilluminate the abdominal wall in the right lower quadrant. In the cecum, the above-described polyp was identified. This was removed with the biopsy forceps. The polyp appeared to be completely removed in this manner. This tissue was retrieved. The scope was then slowly withdrawn sequentially re- examining the colonic segments until the entire colon and rectum had been fully examined. The scope was removed and the patient was taken from the operating room in satisfactory condition. ESTIMATED BLOOD LOSS: Zero. COMPLICATIONS: None. PROGNOSIS: Good. /[id number]/MODL
== END 2018-10-05 12:05 | disposition home or self-care (01) ==
LOC: KA.SDS 08:39
PROVIDERS: ATTEND Surgery
DX: Z12.11 Encounter for screening for malignant neoplasm of colon (principal); D12.0 Benign neoplasm of cecum; I10 Essential (primary) hypertension; J44.9 Chronic obstructive pulmonary disease, unspecified; E78.00 Pure hypercholesterolemia, unspecified; F32.9 Major depressive disorder, single episode, unspecified; F17.200 Nicotine dependence, unspecified, uncomplicated; H61.23 Impacted cerumen, bilateral; G40.909 Epilepsy, unspecified, not intractable, without status epilepticus; N40.0 Benign prostatic hyperplasia without lower urinary tract symptoms; Z91.041 Radiographic dye allergy status; Z79.51 Long term (current) use of inhaled steroids; Z79.899 Other long term (current) drug therapy
CPT/HCPCS: 45380; J2704; J7120; 00811; 88305

== ENCOUNTER 2020-06-21 03:30 | Emergency (ER) | payer MEDICARE, BC ==
[2020-06-21 04:01] VITALS: BP 139/84; PULSE 82
[2020-06-21] MEDS: Azithromycin 250 MG Tab PO ONE (04:18)
--- NOTE | 2020-06-21 04:23 | EDM.PDOC ---
ED HPI GENERAL MEDICAL PROBLEM - General Chief Complaint: General Stated Complaint: Shortness of breath Time Seen by Provider: 06/21/20 04:02 Source of Information: Reports: Patient History Limitations: Reports: No Limitations - History of Present Illness INITIAL COMMENTS - FREE TEXT/NARRATIVE: Patient presents after waking an hour ago with severe dyspnea. He was a little scared because he was more short of breath than he has ever been before. He tried his nebulizer but couldn't move enough air to work so he used his albuterol inhaler first. This gave some improvement and then the Duoneb was done. These two things made a huge improvement and he is now feeling pretty good. He smokes 1 ppd and 50 year history. He has had a little cough lately too. - Related Data Allergies Allergy/AdvReac Type Severity Reaction Status Date / Time Iodinated Contrast Media Allergy Airway Verified 06/21/20 03:32 Tightness iodine Allergy Other Verified 06/21/20 03:32 contrast dye Allergy Severe Airway Uncoded 06/21/20 04:08 Tightness Home Meds: Home Meds Simvastatin [Zocor] 20 mg PO BEDTIME 08/27/13 [History] traZODone 75 mg PO BEDTIME 08/27/13 [History] Albuterol/Ipratropium [DuoNeb 3.0-0.5 MG/3 ML] 3 ml NEB Q4H PRN 09/24/14 [History] Lisinopril 40 mg PO BID 09/24/14 [History] PARoxetine [Paxil] 10 mg PO BEDTIME 09/24/14 [History] amLODIPine [Norvasc] 10 mg PO DAILY 09/24/14 [History] Tamsulosin [Flomax] 0.4 mg PO PCBREAKFAST #30 cap.er 01/06/15 [Rx] L.acidoph,Paracasei, B.lactis [Probiotic] 1 each PO DAILY 03/19/15 [History] Potassium Chloride 20 meq PO TID 11/03/16 [History] Albuterol [Ventolin HFA] 2 puff INH Q4H PRN 08/09/18 [History] Past Medical History HEENT History: Reports: Cataract Cardiovascular History: Reports: High Cholesterol, Hypertension Respiratory History: Reports: COPD Gastrointestinal History: Reports: None Genitourinary History: Reports: BPH Musculoskeletal History: Reports: Back Pain, Chronic Neurological History: Reports: Other (See Below) Other Neuro History: dizziness Psychiatric History: Reports: Depression Endocrine/Metabolic History: Reports: None Hematologic History: Reports: Other (See Below) Other Hematologic History: hypokalemia Immunologic History: Reports: None Oncologic (Cancer) History: Reports: None Dermatologic History: Reports: Eczema Other Dermatologic History: eczemza - Infectious Disease History Infectious Disease History: Reports: Chicken Pox, Influenza, Measles, Mumps, Shingles - Past Surgical History HEENT Surgical History: Reports: Cataract Surgery Other HEENT Surgeries/Procedures: deviated septum Cardiovascular Surgical History: Reports: Other (See Below) Other Cardiovascular Surgeries/Procedures: cardiac spasm, angiogram Respiratory Surgical History: Reports: None GI Surgical History: Reports: Colonoscopy, EGD, Hernia Repair/Other Male Surgical History: Reports: None Neurological Surgical History: Reports: None Musculoskeletal Surgical History: Reports: None Dermatological Surgical History: Reports: None Social & Family History - Family History Family Medical History: No Pertinent Family History - Tobacco Use Tobacco Use Status *Q: Current Every Day Tobacco User Years of Tobacco use: 50 Packs/Tins Daily: 1 - Caffeine Use Caffeine Use: Reports: Coffee - Recreational Drug Use Recreational Drug Use: Yes Recreational Drug Type: Reports: Marijuana/Hashish Recreational Drug Use Frequency: Weekly - Living Situation & Occupation Living situation: Reports: Occupation: Retired ED ROS GENERAL - Review of Systems Review Of Systems: See Below Constitutional: Denies: Fever, Chills, Malaise, Weakness HEENT: Reports: No Symptoms Respiratory: Reports: Shortness of Breath, Cough Cardiovascular: Denies: Chest Pain, Lightheadedness, Syncope GI/Abdominal: Denies: Abdominal Pain, Vomiting : Reports: No Symptoms Musculoskeletal: Reports: No Symptoms Skin: Reports: No Symptoms Neurological: Reports: No Symptoms Psychiatric: Reports: No Symptoms ED EXAM, GENERAL - Physical Exam Exam: See Below Exam Limited By: No Limitations General Appearance: Alert, WD/WN, No Apparent Distress Eye Exam: Bilateral Eye: EOMI, Normal Inspection, PERRL Ears: Normal External Exam, Hearing Grossly Normal Nose: Normal Inspection, No Blood Throat/Mouth: Normal Inspection, Normal Lips, Normal Voice, No Airway Compromise Head: Atraumatic, Normocephalic Neck: Normal Inspection, Full Range of Motion Respiratory/Chest: No Respiratory Distress, No Accessory Muscle Use, Crackles (mild in lung bases consistent with COPD but possible early pneumonia superimposed on COPD.). No: Rhonchi, Wheezing, Stridor Cardiovascular: Regular Rate, Rhythm, No Murmur GI/Abdominal: No Distention Back Exam: Normal Inspection, Full Range of Motion. No: CVA Tenderness (L), CVA Tenderness (R) Extremities: Normal Inspection, Normal Range of Motion Neurological: Alert, Oriented, Normal Cognition, No Motor/Sensory Deficits Psychiatric: Normal Affect, Normal Mood Skin Exam: Warm, Dry, Intact, Normal Color, No Rash Course - Vital Signs Last Recorded V/S: Last Vital Signs Temp 97.2 F 06/21/20 03:41 Pulse 82 06/21/20 04:00 Resp 22 H 06/21/20 04:00 BP 139/84 06/21/20 04:00 Pulse Ox 93 L 06/21/20 04:00 - Orders/Labs/Meds Orders: Active Orders 24 hr Category Date Time Status Azithromycin [Zithromax] Med 06/21/20 04:13 Once 500 mg PO ONETIME ONE - Re-Assessments/Exams Free Text/Narrative Re-Assessment/Exam: 06/21/20 04:18 Discussed findings and treatment plan with patient. He has used either Z-pack or Augmentin or sometimes both in situations like this when pneumonia is suspected. Tonight I feel this is most likely a COPD exacerbation but early pneumonia is a possibility based on exam. I don't feel imaging would change treatment at this point. Patient given Zithromax 500 mg po in ER and a Z-pack Rx to start tomorrow. Discharged to home in stable condition. I offered another neb treatment before he goes but he feels he is doing quite well now. Departure - Departure Time of Disposition: 04:15 Disposition: Home, Self-Care 01 Condition: Good Clinical Impression: COPD exacerbation - Discharge Information Referrals: Stacey Cohen MD [Primary Care Provider] - Additional Instructions: Drink 8 cups of water daily. Take the Zithromax as directed starting tomorrow since you had a dose today in ER. Follow up with your PCP if not improving in 24-48 hours or [facility] if worsening. Return to ER as needed. Sepsis Event Note (ED) - Evaluation Sepsis Screening Result: No Definite Risk - Focused Exam Vital Signs: Vital Signs Temp Pulse Resp BP Pulse Ox 06/21/20 04:00 82 22 H 139/84 93 L 06/21/20 03:46 151/86 H 06/21/20 03:41 97.2 F 96 20 166/92 H 93 L - My Orders Last 24 Hours: My Active Orders 06/21/20 04:13 Azithromycin [Zithromax] 500 mg PO ONETIME ONE - Assessment/Plan Last 24 Hours: My Active Orders 06/21/20 04:13 Azithromycin [Zithromax] 500 mg PO ONETIME ONE
== END 2020-06-21 04:29 | disposition home or self-care (01) ==
LOC: KA.ED 03:30
DX: J44.1 Chronic obstructive pulmonary disease with (acute) exacerbation (principal); E78.00 Pure hypercholesterolemia, unspecified; I10 Essential (primary) hypertension; Z91.041 Radiographic dye allergy status; Z72.0 Tobacco use; Z79.899 Other long term (current) drug therapy
CPT/HCPCS: 99284; A9270-GY

== ENCOUNTER 2023-07-16 11:34 | Inpatient (IN) | payer MEDICARE, BC ==
[2023-07-16] MEDS ORDERED: Sodium Chloride 0.9% 10 ML Syringe FLUSH PRN (11:37)
[2023-07-16 11:46] LABS: BASOPHILS ABSOLUTE AUTO 0.02 10^3/uL (0.00-0.10); BASOPHILS PERCENT AUTO 0.2 % (0.0-1.0); EOSINOPHILS ABSOLUTE AUTO 0.07 10^3/uL (0.10-0.30); EOSINOPHILS PERCENT AUTO 0.8 % (1.0-3.0); HEMATOCRIT 49.3 % (40.0-52.0); HEMOGLOBIN 16.3 g/dL (13.0-17.0); IMMATURE GRAN ABSOLUTE AUTO 0.02 10^3/uL (0.00-0.50); IMMATURE GRAN PERCENT AUTO 0.2 % (0.0-5.0); LYMPHOCYTES ABSOLUTE AUTO 1.05 10^3/uL (1.00-4.00); LYMPHOCYTES PERCENT AUTO 12.4 % (20.0-40.0); MEAN CORPUSCULAR HEMOGLOBIN 30.7 pg (27.0-31.0); MEAN CORPUSCULAR HGB CONC 33.1 g/dL (32.0-36.0); MEAN CORPUSCULAR VOLUME 92.8 fL (82.0-92.0); MEAN PLATELET VOLUME 9.9 fL (7.4-10.4); MONOCYTES ABSOLUTE AUTO 0.72 10^3/uL (0.10-0.80); MONOCYTES PERCENT AUTO 8.5 % (2.0-8.0); NEUTROPHILS ABSOLUTE AUTO 6.56 10^3/uL (2.50-7.00); NEUTROPHILS PERCENT AUTO 77.9 % (50.0-70.0); PLATELET COUNT,PLT 172 10^3/uL (150-400); RED BLOOD CELL COUNT 5.31 10^6/uL (4.50-6.00); RED CELL DISTRIBUTION WIDTH 14.4 % (11.5-14.5); WHITE BLOOD CELL COUNT,WBC 8.44 10^3/uL (5.00-10.00)
[2023-07-16] MEDS: methylPREDNISolone Sodium Succinate 125 MG/2 ML SDV IVPUSH ONE (12:10)
[2023-07-16] MEDS: Sodium Chloride 0.9% 1,000 ML IV SCH (12:10)
[2023-07-16 12:11] LABS: ALANINE AMINOTRANSFERASE,ALT 28 U/L (14-63); ALBUMIN 3.68 g/dL (3.40-5.00); ALKALINE PHOSPHATASE 122 U/L (46-116); ANION GAP 13.1 mmol/L (5-15); ASPARTATE AMNIOTRANSFERASE,AST 19 U/L (15-37); BILIRUBIN TOTAL 0.5 mg/dL (0.2-1.0); BLOOD UREA NITROGEN,BUN 12 mg/dL (7-18); C-REACTIVE PROTEIN 1.15 mg/dL (0.00-0.50); CALCIUM 9.3 mg/dL (8.7-10.3); CARBON DIOXIDE,CO2 30.4 mmol/L (21.0-32.0); CHLORIDE,CL 102 mmol/L (98-107); CREATININE 0.66 mg/dL (0.51-1.17); GLUCOSE RANDOM 186 mg/dL (70-140); POTASSIUM,K 3.5 mmol/L (3.5-5.1); PROTEIN TOTAL,TP 7.2 g/dL (6.4-8.2); SODIUM,NA 142 mmol/L (136-145)
[2023-07-16 12:13] LABS: B-TYPE NATRIURETIC PEPTIDE,BNP 29 pg/mL (0-100)
[2023-07-16 12:16] LABS: ESTIMATED GFR 102 mL/min (>=60); LACTIC ACID 1.4 mmol/L (0.4-2.0)
[2023-07-16 12:25] LABS: O2 DELIVERY DEVICE NASAL CANNULA
[2023-07-16 12:30] LABS: BASE EXCESS ARTERIAL 3 mmol/L ((-2)-(+3)); BICARBONATE,ARTERIAL 25 mmol/L (21-28); O2 SATURATION ARTERIAL 99 %; PCO2 ARTERIAL 33 mmHG (35-48); PH,ARTERIAL 7.49 pH (7.35-7.45); PO2 ARTERIAL 108 mmHG (83-108)
[2023-07-16] MEDS: Diltiazem 25 MG/5 ML SDV IVPUSH ONE (13:28)
[2023-07-16 13:47] LABS: INFLUENZA A NAA NEGATIVE (NEGATIVE); INFLUENZA B NAA NEGATIVE (NEGATIVE); RESPIRATORY SYNCYTIAL VIR NAA NEGATIVE (NEGATIVE)
[2023-07-16 13:48] LABS: CORONAVIRUS COVID-19 NAA NEGATIVE (NEGATIVE)
[2023-07-16] MEDS ORDERED: Albuterol 8 GM Inhaler INH PRN (15:06)
[2023-07-16] MEDS ORDERED: Non-Formulary Medication 1 Each (Fluticasone/Umeclidin/Vilanter [Trelegy Ellipta 200-62.5- PO SCH (15:15)
[2023-07-16] MEDS ORDERED: Polyethylene Glycol 3350 Powder 17 GM Packet PO PRN (15:26)
[2023-07-16] MEDS ORDERED: Acetaminophen 325 MG Tab PO PRN (15:26)
[2023-07-16] MEDS: Cefepime 1 GM in Sodium Chloride 0.9% 50 ML IV ONE (15:56)
[2023-07-16 16:22] LABS: TSH ULTRASENSITIVE 0.732 uIU/mL (0.340-4.820)
[2023-07-16] MEDS: Fluticasone NASAL Spray 16 GM Bottle NASBOTH SCH (17:00)
[2023-07-16] MEDS: Potassium Chloride 10 MEQ Tab.ER PO SCH (17:00)
[2023-07-16] MEDS: Nicotine 21 MG/24 Hr Patch TRDERM SCH (18:18)
[2023-07-16] MEDS: Lisinopril 20 MG Tab PO SCH (18:39)
[2023-07-16] MEDS: Ondansetron 4 MG Tab.DIS PO PRN (18:41)
[2023-07-16] MEDS: Gabapentin 100 MG Cap PO SCH (20:45)
[2023-07-16] MEDS: Tamsulosin 0.4 MG Cap.ER PO SCH (20:46)
[2023-07-16] MEDS: Docusate Sodium 100 MG Cap PO SCH (20:46)
[2023-07-16] MEDS: PARoxetine 20 MG Tab PO SCH (20:46)
[2023-07-16] MEDS: Simvastatin 20 MG Tab PO SCH (20:47)
[2023-07-16] MEDS: traZODone 50 MG Tab PO SCH (20:47)
[2023-07-16] MEDS: Montelukast 10 MG Tab PO SCH (20:47)
[2023-07-17] MEDS: Sodium Chloride 0.9% 250 ML IV SCH (00:10)
[2023-07-17] MEDS: Cefepime 1 GM in Sodium Chloride 0.9% 50 ML IV SCH (00:17)
[2023-07-17 07:59] LABS: BASOPHILS ABSOLUTE AUTO 0.02 10^3/uL (0.00-0.10); BASOPHILS PERCENT AUTO 0.2 % (0.0-1.0); EOSINOPHILS ABSOLUTE AUTO 0.05 10^3/uL (0.10-0.30); EOSINOPHILS PERCENT AUTO 0.6 % (1.0-3.0); HEMATOCRIT 45.2 % (40.0-52.0); IMMATURE GRAN ABSOLUTE AUTO 0.01 10^3/uL (0.00-0.50); IMMATURE GRAN PERCENT AUTO 0.1 % (0.0-5.0); LYMPHOCYTES ABSOLUTE AUTO 1.45 10^3/uL (1.00-4.00); LYMPHOCYTES PERCENT AUTO 16.1 % (20.0-40.0); MEAN CORPUSCULAR HEMOGLOBIN 31.1 pg (27.0-31.0); MEAN CORPUSCULAR HGB CONC 33.2 g/dL (32.0-36.0); MEAN CORPUSCULAR VOLUME 93.6 fL (82.0-92.0); MEAN PLATELET VOLUME 10.1 fL (7.4-10.4); MONOCYTES ABSOLUTE AUTO 1.21 10^3/uL (0.10-0.80); MONOCYTES PERCENT AUTO 13.4 % (2.0-8.0); NEUTROPHILS ABSOLUTE AUTO 6.28 10^3/uL (2.50-7.00); NEUTROPHILS PERCENT AUTO 69.6 % (50.0-70.0); PLATELET COUNT,PLT 145 10^3/uL (150-400); RED BLOOD CELL COUNT 4.83 10^6/uL (4.50-6.00); WHITE BLOOD CELL COUNT,WBC 9.02 10^3/uL (5.00-10.00)
[2023-07-17 08:15] LABS: ANION GAP 12.4 mmol/L (5-15); CALCIUM 8.7 mg/dL (8.7-10.3); CARBON DIOXIDE,CO2 29.1 mmol/L (21.0-32.0); CREATININE 0.73 mg/dL (0.51-1.17); EST CRCL DRUG DOSING (CG) 73.83 mL/min; MAGNESIUM 1.8 mg/dL (1.8-2.4); POTASSIUM,K 4.5 mmol/L (3.5-5.1)
[2023-07-17] MEDS: Cholecalciferol (Vitamin D3) 25 MCG Tab PO SCH (08:48)
[2023-07-17] MEDS: Cyanocobalamin (Vitamin B12) 500 MCG Tab PO SCH (08:48)
[2023-07-17] MEDS: Enoxaparin 40 MG/0.4 ML Syringe SUBCUT SCH (08:49)
[2023-07-17] MEDS: Lactobacillus Rhamnosus GG (Probiotic) Cap PO SCH (08:49)
[2023-07-17] MEDS: Tiotropium Bromide 4 GM Inhalation Spray (2.5mcg/1 dose; 10 doses) INH SCH (08:49)
[2023-07-17] MEDS: Formoterol/Mometasone 100-5 MCG 8.8 GM Inhaler INH SCH (08:49)
[2023-07-17] MEDS: Spironolactone 25 MG Tab PO SCH (08:49)
[2023-07-17] MEDS: Triamcinolone Acetonide 0.1% Crm 15 GM Tube TOP SCH (08:59)
[2023-07-17] MEDS: methylPREDNISolone Sod Succ 125 MG in Sodium Chloride 0.9% 250 ML IV SCH (10:14)
[2023-07-17] MEDS: Albuterol/Ipratropium 3.0-0.5 MG/3 ML Neb Soln NEB PRN (19:20)
[2023-07-18 07:47] LABS: BASOPHILS ABSOLUTE AUTO 0.02 10^3/uL (0.00-0.10); BASOPHILS PERCENT AUTO 0.2 % (0.0-1.0); EOSINOPHILS ABSOLUTE AUTO 0.04 10^3/uL (0.10-0.30); EOSINOPHILS PERCENT AUTO 0.5 % (1.0-3.0); HEMOGLOBIN 14.5 g/dL (13.0-17.0); IMMATURE GRAN ABSOLUTE AUTO 0.01 10^3/uL (0.00-0.50); IMMATURE GRAN PERCENT AUTO 0.1 % (0.0-5.0); LYMPHOCYTES ABSOLUTE AUTO 1.64 10^3/uL (1.00-4.00); LYMPHOCYTES PERCENT AUTO 19.5 % (20.0-40.0); MEAN CORPUSCULAR HEMOGLOBIN 31.5 pg (27.0-31.0); MEAN CORPUSCULAR HGB CONC 33.7 g/dL (32.0-36.0); MEAN CORPUSCULAR VOLUME 93.5 fL (82.0-92.0); MEAN PLATELET VOLUME 9.8 fL (7.4-10.4); MONOCYTES ABSOLUTE AUTO 0.85 10^3/uL (0.10-0.80); MONOCYTES PERCENT AUTO 10.1 % (2.0-8.0); NEUTROPHILS ABSOLUTE AUTO 5.86 10^3/uL (2.50-7.00); NEUTROPHILS PERCENT AUTO 69.6 % (50.0-70.0); PLATELET COUNT,PLT 147 10^3/uL (150-400); RED CELL DISTRIBUTION WIDTH 14.2 % (11.5-14.5); WHITE BLOOD CELL COUNT,WBC 8.42 10^3/uL (5.00-10.00)
[2023-07-18 08:02] LABS: ANION GAP 10.1 mmol/L (5-15); CALCIUM 8.8 mg/dL (8.7-10.3); CARBON DIOXIDE,CO2 30.7 mmol/L (21.0-32.0); CREATININE 0.7 mg/dL (0.51-1.17); EST CRCL DRUG DOSING (CG) 78.47 mL/min; MAGNESIUM 1.7 mg/dL (1.8-2.4); POTASSIUM,K 3.8 mmol/L (3.5-5.1)
[2023-07-18] MEDS: Magnesium Oxide 500 MG Tab PO ONE (10:57)
[2023-07-18 11:42] VITALS: BP 157/61; PULSE 68
[2023-07-18] MEDS: Nicotine 21 MG/24 Hr Patch TRDERM ONE (13:57)
== END 2023-07-18 13:05 | disposition home or self-care (01) | DRG 189 ==
LOC: KA.ED 11:34 → KA.MS 13:33
PROVIDERS: ADMIT Family Medicine; ATTEND Family Medicine
DX: J96.20 Acute and chronic respiratory failure, unspecified whether with hypoxia or hypercapnia (principal); J44.1 Chronic obstructive pulmonary disease with (acute) exacerbation; I10 Essential (primary) hypertension; E78.00 Pure hypercholesterolemia, unspecified; N40.0 Benign prostatic hyperplasia without lower urinary tract symptoms; I48.0 Paroxysmal atrial fibrillation; G89.29 Other chronic pain; M54.9 Dorsalgia, unspecified; F32.A Depression, unspecified; G62.9 Polyneuropathy, unspecified; F17.210 Nicotine dependence, cigarettes, uncomplicated; Z91.041 Radiographic dye allergy status; Z98.49 Cataract extraction status, unspecified eye; Z98.890 Other specified postprocedural states; Z79.899 Other long term (current) drug therapy
CPT/HCPCS: 0241U; 36415; 36600; 71045; 71250; 80048; 80053; 80061; 82803; 83036; 83605; 83735; 83880; 84443; 84484; 85025; 86140; 87040; 93005; 93010; 96361; 96374; 96375; 99223-GT; 99233-GT; 99239-GT; 99284; 99285-25; A9270-GY; J0692; J1650; J2919; J2930; J3490; J7030; J7050; J7620-GY; Q3014

== ENCOUNTER 2023-09-21 15:10 | Emergency (ER) | payer MEDICARE, BC ==
[2023-09-21] MEDS ORDERED: Sodium Chloride 0.9% 10 ML Syringe FLUSH PRN (15:16)
[2023-09-21 15:29] LABS: BASOPHILS ABSOLUTE AUTO 0.02 10^3/uL (0.00-0.10); BASOPHILS PERCENT AUTO 0.2 % (0.0-1.0); EOSINOPHILS ABSOLUTE AUTO 0.04 10^3/uL (0.10-0.30); EOSINOPHILS PERCENT AUTO 0.5 % (1.0-3.0); HEMATOCRIT 45.2 % (40.0-52.0); HEMOGLOBIN 14.8 g/dL (13.0-17.0); IMMATURE GRAN ABSOLUTE AUTO 0.03 10^3/uL (0.00-0.50); IMMATURE GRAN PERCENT AUTO 0.4 % (0.0-5.0); LYMPHOCYTES ABSOLUTE AUTO 0.63 10^3/uL (1.00-4.00); LYMPHOCYTES PERCENT AUTO 7.7 % (20.0-40.0); MEAN CORPUSCULAR HEMOGLOBIN 30.5 pg (27.0-31.0); MEAN CORPUSCULAR HGB CONC 32.7 g/dL (32.0-36.0); MEAN CORPUSCULAR VOLUME 93.2 fL (82.0-92.0); MEAN PLATELET VOLUME 9.2 fL (7.4-10.4); MONOCYTES PERCENT AUTO 4.9 % (2.0-8.0); NEUTROPHILS ABSOLUTE AUTO 7.07 10^3/uL (2.50-7.00); NEUTROPHILS PERCENT AUTO 86.3 % (50.0-70.0); PLATELET COUNT,PLT 177 10^3/uL (150-400); RED BLOOD CELL COUNT 4.85 10^6/uL (4.50-6.00); RED CELL DISTRIBUTION WIDTH 14.1 % (11.5-14.5); WHITE BLOOD CELL COUNT,WBC 8.19 10^3/uL (5.00-10.00)
[2023-09-21] MEDS ORDERED: Sodium Chloride 0.9% 1,000 ML IV SCH (15:30)
[2023-09-21 15:54] LABS: ALBUMIN 3.32 g/dL (3.40-5.00); ANION GAP 10.3 mmol/L (5-15); BILIRUBIN TOTAL 0.5 mg/dL (0.2-1.0); CALCIUM 9.4 mg/dL (8.7-10.3); CARBON DIOXIDE,CO2 29.9 mmol/L (21.0-32.0); CREATININE 0.67 mg/dL (0.51-1.17); EST CRCL DRUG DOSING (CG) 86.79 mL/min; POTASSIUM,K 4.2 mmol/L (3.5-5.1); PROTEIN TOTAL,TP 6.3 g/dL (6.4-8.2)
[2023-09-21 16:11] LABS: HCO3 ARTERIAL,POC 27.3 mmol/L (21-28); PCO2 ARTERIAL,POC 41 mmHg (35-48); PH ARTERIAL,POC 7.43 pH (7.35-7.45); PO2 ARTERIAL,POC 73 mmHg (83-108)
[2023-09-21 16:21] LABS: HCO3 ARTERIAL,POC 27.3 mmol/L (21-28); PCO2 ARTERIAL,POC 41 mmHg (35-48); PH ARTERIAL,POC 7.43 pH (7.35-7.45); PO2 ARTERIAL,POC 73 mmHg (83-108)
[2023-09-21 18:04] VITALS: BP 152/74; PULSE 83
== END 2023-09-21 17:15 | disposition home or self-care (01) ==
LOC: KA.ED 15:10
DX: J44.9 Chronic obstructive pulmonary disease, unspecified (principal); I10 Essential (primary) hypertension; E78.00 Pure hypercholesterolemia, unspecified; Z79.899 Other long term (current) drug therapy; Z79.891 Long term (current) use of opiate analgesic; Z91.048 Other nonmedicinal substance allergy status
CPT/HCPCS: 36415; 36600; 71045; 80053; 82803; 83880; 84484; 85025; 85379; 93010; 99284; 99285

== ENCOUNTER 2023-11-02 13:59 | Emergency (ER) | payer MEDICARE, BC ==
[2023-11-02 14:13] VITALS: BP 189/86
[2023-11-02] MEDS ORDERED: Sodium Chloride 0.9% 10 ML Syringe FLUSH PRN (14:28)
[2023-11-02 14:48] LABS: BASOPHILS ABSOLUTE AUTO 0.03 10^3/uL (0.00-0.10); BASOPHILS PERCENT AUTO 0.3 % (0.0-1.0); EOSINOPHILS ABSOLUTE AUTO 0.07 10^3/uL (0.10-0.30); EOSINOPHILS PERCENT AUTO 0.6 % (1.0-3.0); HEMATOCRIT 46.5 % (40.0-52.0); HEMOGLOBIN 15.4 g/dL (13.0-17.0); IMMATURE GRAN ABSOLUTE AUTO 0.04 10^3/uL (0.00-0.50); IMMATURE GRAN PERCENT AUTO 0.4 % (0.0-5.0); LYMPHOCYTES ABSOLUTE AUTO 0.82 10^3/uL (1.00-4.00); LYMPHOCYTES PERCENT AUTO 7.3 % (20.0-40.0); MEAN CORPUSCULAR HEMOGLOBIN 31.2 pg (27.0-31.0); MEAN CORPUSCULAR HGB CONC 33.1 g/dL (32.0-36.0); MEAN CORPUSCULAR VOLUME 94.1 fL (82.0-92.0); MEAN PLATELET VOLUME 8.9 fL (7.4-10.4); MONOCYTES PERCENT AUTO 7.1 % (2.0-8.0); NEUTROPHILS ABSOLUTE AUTO 9.51 10^3/uL (2.50-7.00); NEUTROPHILS PERCENT AUTO 84.3 % (50.0-70.0); PLATELET COUNT,PLT 184 10^3/uL (150-400); RED BLOOD CELL COUNT 4.94 10^6/uL (4.50-6.00); RED CELL DISTRIBUTION WIDTH 14.1 % (11.5-14.5); WHITE BLOOD CELL COUNT,WBC 11.27 10^3/uL (5.00-10.00)
[2023-11-02] MEDS: methylPREDNISolone Sodium Succinate 125 MG/2 ML SDV IVPUSH ONE (14:50)
[2023-11-02] MEDS: Albuterol/Ipratropium 3.0-0.5 MG/3 ML Neb Soln NEB ONE (14:54)
[2023-11-02 15:04] LABS: ALBUMIN 3.62 g/dL (3.40-5.00); ANION GAP 10.8 mmol/L (5-15); BILIRUBIN TOTAL 0.5 mg/dL (0.2-1.0); CALCIUM 9.6 mg/dL (8.7-10.3); CARBON DIOXIDE,CO2 31.7 mmol/L (21.0-32.0); CREATININE 0.7 mg/dL (0.51-1.17); EST CRCL DRUG DOSING (CG) 80.64 mL/min; POTASSIUM,K 4.5 mmol/L (3.5-5.1); PROTEIN TOTAL,TP 6.8 g/dL (6.4-8.2)
[2023-11-02 15:06] VITALS: PULSE 79
== END 2023-11-02 16:15 | disposition home or self-care (01) ==
LOC: KA.ED 13:59
DX: J43.2 Centrilobular emphysema (principal); I48.20 Chronic atrial fibrillation, unspecified; I10 Essential (primary) hypertension; E78.00 Pure hypercholesterolemia, unspecified; J44.9 Chronic obstructive pulmonary disease, unspecified; F17.210 Nicotine dependence, cigarettes, uncomplicated; Z88.0 Allergy status to penicillin; Z91.041 Radiographic dye allergy status; Z79.899 Other long term (current) drug therapy; Z79.51 Long term (current) use of inhaled steroids; Z79.01 Long term (current) use of anticoagulants
CPT/HCPCS: 36415; 71045; 80053; 83605; 83735; 83880; 84484; 85025; 93005; 93010; 94640; 96374; 99284; 99285-25; J2919; J7620-GY

== ENCOUNTER 2023-11-16 09:40 | Inpatient (IN) | payer MEDICARE, BC ==
[2023-11-16] MEDS ORDERED: Sodium Chloride 0.9% 10 ML Syringe FLUSH PRN (09:47)
[2023-11-16 10:00] LABS: BASOPHILS ABSOLUTE AUTO 0.04 10^3/uL (0.00-0.10); BASOPHILS PERCENT AUTO 0.3 % (0.0-1.0); EOSINOPHILS ABSOLUTE AUTO 0.14 10^3/uL (0.10-0.30); EOSINOPHILS PERCENT AUTO 1.2 % (1.0-3.0); HEMATOCRIT 50.8 % (40.0-52.0); HEMOGLOBIN 16.9 g/dL (13.0-17.0); IMMATURE GRAN ABSOLUTE AUTO 0.09 10^3/uL (0.00-0.50); IMMATURE GRAN PERCENT AUTO 0.8 % (0.0-5.0); LYMPHOCYTES ABSOLUTE AUTO 1.52 10^3/uL (1.00-4.00); LYMPHOCYTES PERCENT AUTO 13.2 % (20.0-40.0); MEAN CORPUSCULAR HEMOGLOBIN 30.7 pg (27.0-31.0); MEAN CORPUSCULAR HGB CONC 33.3 g/dL (32.0-36.0); MEAN CORPUSCULAR VOLUME 92.2 fL (82.0-92.0); MEAN PLATELET VOLUME 9.3 fL (7.4-10.4); MONOCYTES ABSOLUTE AUTO 1.18 10^3/uL (0.10-0.80); MONOCYTES PERCENT AUTO 10.3 % (2.0-8.0); NEUTROPHILS ABSOLUTE AUTO 8.52 10^3/uL (2.50-7.00); NEUTROPHILS PERCENT AUTO 74.2 % (50.0-70.0); PLATELET COUNT,PLT 169 10^3/uL (150-400); RED BLOOD CELL COUNT 5.51 10^6/uL (4.50-6.00); RED CELL DISTRIBUTION WIDTH 14.1 % (11.5-14.5); WHITE BLOOD CELL COUNT,WBC 11.49 10^3/uL (5.00-10.00)
[2023-11-16] MEDS: Diltiazem 25 MG/5 ML SDV IVPUSH ONE ×2 (10:12→10:52)
[2023-11-16 10:22] LABS: ALBUMIN 3.39 g/dL (3.40-5.00); ANION GAP 13.9 mmol/L (5-15); BILIRUBIN TOTAL 0.5 mg/dL (0.2-1.0); CALCIUM 9.4 mg/dL (8.7-10.3); CARBON DIOXIDE,CO2 26.4 mmol/L (21.0-32.0); CREATININE 0.68 mg/dL (0.51-1.17); EST CRCL DRUG DOSING (CG) 79.12 mL/min; POTASSIUM,K 4.3 mmol/L (3.5-5.1); PROTEIN TOTAL,TP 6.6 g/dL (6.4-8.2)
[2023-11-16] MEDS: Diltiazem 125 MG in Sodium Chloride 0.9% 100 ML IV SCH (11:20)
[2023-11-16] MEDS: Sodium Chloride 0.9% 1,000 ML IV SCH (11:20)
[2023-11-16] MEDS ORDERED: Ondansetron 4 MG Tab.DIS PO PRN (13:22)
[2023-11-16] MEDS ORDERED: Acetaminophen 325 MG Tab PO PRN (13:24)
[2023-11-16] MEDS: Levalbuterol HCl 0.63 MG/3 ML Neb NEB PRN (13:55)
[2023-11-16] MEDS: Nicotine 21 MG/24 Hr Patch TRDERM SCH (14:53)
[2023-11-16] MEDS: predniSONE 20 MG Tab PO SCH (14:54)
[2023-11-16] MEDS: Metoprolol Tartrate 25 MG Tab PO SCH (14:54)
[2023-11-16] MEDS: Remove Patch - NICOTINE TRDERM SCH (14:54)
[2023-11-16] MEDS ORDERED: Ondansetron 4 MG/2 ML SDV IVPUSH PRN (18:15)
[2023-11-16] MEDS: traZODone 50 MG Tab PO SCH (20:56)
[2023-11-16] MEDS: Tamsulosin 0.4 MG Cap.ER PO SCH (20:56)
[2023-11-16] MEDS: Apixaban 5 MG Tab PO SCH (20:57)
[2023-11-16] MEDS: PARoxetine 20 MG Tab PO SCH (20:57)
[2023-11-16] MEDS: atorvaSTATin 10 MG Tab PO SCH (20:57)
[2023-11-16] MEDS: Spironolactone 25 MG Tab PO SCH (20:59)
[2023-11-17 07:03] LABS: BASOPHILS ABSOLUTE AUTO 0.01 10^3/uL (0.00-0.10); BASOPHILS PERCENT AUTO 0.2 % (0.0-1.0); HEMATOCRIT 46.3 % (40.0-52.0); HEMOGLOBIN 15.4 g/dL (13.0-17.0); IMMATURE GRAN ABSOLUTE AUTO 0.03 10^3/uL (0.00-0.50); IMMATURE GRAN PERCENT AUTO 0.5 % (0.0-5.0); LYMPHOCYTES PERCENT AUTO 13.2 % (20.0-40.0); MEAN CORPUSCULAR HEMOGLOBIN 30.7 pg (27.0-31.0); MEAN CORPUSCULAR HGB CONC 33.3 g/dL (32.0-36.0); MEAN CORPUSCULAR VOLUME 92.2 fL (82.0-92.0); MEAN PLATELET VOLUME 9.3 fL (7.4-10.4); MONOCYTES ABSOLUTE AUTO 0.64 10^3/uL (0.10-0.80); MONOCYTES PERCENT AUTO 10.6 % (2.0-8.0); NEUTROPHILS ABSOLUTE AUTO 4.56 10^3/uL (2.50-7.00); NEUTROPHILS PERCENT AUTO 75.5 % (50.0-70.0); PLATELET COUNT,PLT 150 10^3/uL (150-400); RED BLOOD CELL COUNT 5.02 10^6/uL (4.50-6.00); WHITE BLOOD CELL COUNT,WBC 6.04 10^3/uL (5.00-10.00)
[2023-11-17 07:21] LABS: ANION GAP 10.7 mmol/L (5-15); CALCIUM 8.8 mg/dL (8.7-10.3); CARBON DIOXIDE,CO2 29.4 mmol/L (21.0-32.0); CREATININE 0.7 mg/dL (0.51-1.17); EST CRCL DRUG DOSING (CG) 76.86 mL/min; MAGNESIUM 1.5 mg/dL (1.8-2.4); POTASSIUM,K 4.1 mmol/L (3.5-5.1)
[2023-11-17] MEDS: ALPRAZolam 0.25 MG Tab PO PRN (08:50)
[2023-11-17] MEDS: [UNRECOGNIZED DRUG - REMARK] PO SCH (08:51)
[2023-11-17] MEDS: Magnesium Sulfate/Water Premix 2 GM in Premix Bag 1 BAG IV ONE (09:03)
[2023-11-17] MEDS: FLUTICASONE PO SCH (10:56)
[2023-11-17] MEDS: VILANTER PO SCH (10:56)
[2023-11-17] MEDS: UMECLIDIN PO SCH (10:56)
[2023-11-17] MEDS: guaiFENesin 600 MG Tab.ER PO SCH (10:56)
[2023-11-18 07:27] LABS: EOSINOPHILS ABSOLUTE AUTO 0.05 10^3/uL (0.10-0.30); EOSINOPHILS PERCENT AUTO 0.6 % (1.0-3.0); HEMATOCRIT 44.7 % (40.0-52.0); HEMOGLOBIN 14.9 g/dL (13.0-17.0); IMMATURE GRAN ABSOLUTE AUTO 0.02 10^3/uL (0.00-0.50); IMMATURE GRAN PERCENT AUTO 0.2 % (0.0-5.0); LYMPHOCYTES ABSOLUTE AUTO 1.43 10^3/uL (1.00-4.00); LYMPHOCYTES PERCENT AUTO 15.7 % (20.0-40.0); MEAN CORPUSCULAR HEMOGLOBIN 30.8 pg (27.0-31.0); MEAN CORPUSCULAR HGB CONC 33.3 g/dL (32.0-36.0); MEAN CORPUSCULAR VOLUME 92.5 fL (82.0-92.0); MEAN PLATELET VOLUME 9.4 fL (7.4-10.4); MONOCYTES ABSOLUTE AUTO 0.85 10^3/uL (0.10-0.80); MONOCYTES PERCENT AUTO 9.4 % (2.0-8.0); NEUTROPHILS ABSOLUTE AUTO 6.74 10^3/uL (2.50-7.00); NEUTROPHILS PERCENT AUTO 74.1 % (50.0-70.0); PLATELET COUNT,PLT 150 10^3/uL (150-400); RED BLOOD CELL COUNT 4.83 10^6/uL (4.50-6.00); RED CELL DISTRIBUTION WIDTH 13.9 % (11.5-14.5); WHITE BLOOD CELL COUNT,WBC 9.09 10^3/uL (5.00-10.00)
[2023-11-18 07:53] LABS: ANION GAP 10.7 mmol/L (5-15); CALCIUM 8.8 mg/dL (8.7-10.3); CARBON DIOXIDE,CO2 26.1 mmol/L (21.0-32.0); CREATININE 0.64 mg/dL (0.51-1.17); EST CRCL DRUG DOSING (CG) 84.06 mL/min; MAGNESIUM 1.7 mg/dL (1.8-2.4); POTASSIUM,K 3.8 mmol/L (3.5-5.1)
[2023-11-18] MEDS ORDERED: Non-Formulary Medication 1 Each (Triamcinolone Acetonide [Nasacort] 10.8 ML Spray) NAS SCH (09:00)
[2023-11-18 10:45] LABS: B-TYPE NATRIURETIC PEPTIDE,BNP 45 pg/mL (0-100)
[2023-11-18 10:59] LABS: TSH ULTRASENSITIVE 0.209 uIU/mL (0.340-4.820)
[2023-11-18 11:01] LABS: C-REACTIVE PROTEIN < 0.50 mg/dL (0.00-0.50)
[2023-11-18] MEDS: Potassium Chloride 20 MEQ Tab.ER PO ONE (11:06)
[2023-11-18] MEDS: Diltiazem IR 60 MG Tab PO ONE (11:07)
[2023-11-18] MEDS: LORazepam 2 MG/ML SDV IVPUSH ONE (11:07)
[2023-11-18] MEDS: Magnesium Sulfate/Water Premix 2 GM in Premix Bag 1 BAG IV ONE (11:15)
[2023-11-18] MEDS: methylPREDNISolone Sodium Succinate 125 MG/2 ML SDV IVPUSH ONE (11:22)
[2023-11-18] MEDS: methylPREDNISolone Sod Succ 125 MG in Sodium Chloride 0.9% 250 ML IV ONE (11:22)
[2023-11-18] MEDS: Magnesium Sulfate (4.06 MEQ/ML) 1 GM/2 ML SDV IM ONE (11:43)
[2023-11-18] MEDS: Cefepime 2 GM in Sodium Chloride 0.9% 50 ML IV SCH (13:47)
[2023-11-18] MEDS: Nicotine 21 MG/24 Hr Patch TRDERM SCH (13:59)
[2023-11-18] MEDS: methylPREDNISolone Sodium Succinate 125 MG/2 ML SDV IVPUSH SCH (20:32)
[2023-11-18] MEDS ORDERED: methylPREDNISolone Sod Succ 125 MG in Sodium Chloride 0.9% 250 ML IV SCH (21:00)
[2023-11-19 06:57] LABS: HEMATOCRIT 44.5 % (40.0-52.0); HEMOGLOBIN 14.7 g/dL (13.0-17.0); MEAN CORPUSCULAR HEMOGLOBIN 30.6 pg (27.0-31.0); MEAN CORPUSCULAR VOLUME 92.7 fL (82.0-92.0); MEAN PLATELET VOLUME 9.6 fL (7.4-10.4); PLATELET COUNT,PLT 147 10^3/uL (150-400); RED CELL DISTRIBUTION WIDTH 13.7 % (11.5-14.5); WHITE BLOOD CELL COUNT,WBC 8.75 10^3/uL (5.00-10.00)
[2023-11-19 07:14] LABS: ALBUMIN 2.8 g/dL (3.40-5.00); ANION GAP 13.3 mmol/L (5-15); BILIRUBIN TOTAL 0.4 mg/dL (0.2-1.0); CALCIUM 8.4 mg/dL (8.7-10.3); CARBON DIOXIDE,CO2 25.8 mmol/L (21.0-32.0); CREATININE 0.56 mg/dL (0.51-1.17); EST CRCL DRUG DOSING (CG) 96.07 mL/min; MAGNESIUM 1.6 mg/dL (1.8-2.4); POTASSIUM,K 4.1 mmol/L (3.5-5.1); PROTEIN TOTAL,TP 5.6 g/dL (6.4-8.2)
[2023-11-19 07:30] LABS: LYMPHOCYTES ABSOLUTE MAN 0.6125; LYMPHOCYTES PERCENT MAN 7 % (20-40); MONOCYTES ABSOLUTE MAN 0.2625; MONOCYTES PERCENT MAN 3 % (2-8); SEG NEUTROPHILS PERCENT MAN 90 % (50-70)
[2023-11-19] MEDS: Remove Patch - NICOTINE TRDERM SCH (08:42)
[2023-11-19 13:08] VITALS: BP 123/59; PULSE 64
== END 2023-11-19 13:52 | disposition home or self-care (01) | DRG 308 ==
LOC: KA.ED 09:40 → KA.MS 11:48
PROVIDERS: ADMIT Internal Medicine; ATTEND Internal Medicine
DX: I48.91 Unspecified atrial fibrillation (principal); J44.9 Chronic obstructive pulmonary disease, unspecified; I48.0 Paroxysmal atrial fibrillation; J96.21 Acute and chronic respiratory failure with hypoxia; J44.1 Chronic obstructive pulmonary disease with (acute) exacerbation; Z79.51 Long term (current) use of inhaled steroids; Z86.79 Personal history of other diseases of the circulatory system; K59.09 Other constipation; N40.0 Benign prostatic hyperplasia without lower urinary tract symptoms; Z79.2 Long term (current) use of antibiotics; E78.00 Pure hypercholesterolemia, unspecified; I10 Essential (primary) hypertension; G89.29 Other chronic pain; Z91.048 Other nonmedicinal substance allergy status; M54.9 Dorsalgia, unspecified; F41.9 Anxiety disorder, unspecified; F32.A Depression, unspecified; F17.210 Nicotine dependence, cigarettes, uncomplicated; Z88.8 Allergy status to other drugs, medicaments and biological substances; Z79.01 Long term (current) use of anticoagulants; Z98.49 Cataract extraction status, unspecified eye; Z79.52 Long term (current) use of systemic steroids; Z91.041 Radiographic dye allergy status; Z79.899 Other long term (current) drug therapy; Z98.890 Other specified postprocedural states
CPT/HCPCS: 36415; 71045; 71250; 80048; 80053; 83605; 83735; 83880; 84145; 84443; 84484; 85025; 86140; 93005; 93010; 94640; 96374; 96376; 99284; 99285-25; A9270-GY; J0692; J2060; J2919; J3475; J3490; J7030; J7512; Q3014; U0002

== ENCOUNTER 2024-03-14 08:05 | Inpatient (IN) | payer OTHER, BC ==
[2024-03-14] MEDS ORDERED: MORPHINE 20 MG/ML PO PRN (12:42)
[2024-03-14] MEDS ORDERED: HALOPERIDOL 2 MG/ML PO PRN ×2 (13:00)
[2024-03-14] MEDS: MORPHINE 20 MG/ML PO SCH (13:17)
[2024-03-14] MEDS: HALOPERIDOL 2 MG/ML PO SCH (13:21)
[2024-03-14] MEDS ORDERED: HYOSCYAMINE 0.125 MG SL PRN (14:01)
[2024-03-14] MEDS ORDERED: ALBUTEROL 90 MCG INH PRN (15:15)
[2024-03-14] MEDS ORDERED: ONDANSETRON 4 MG PO PRN (15:15)
[2024-03-14] MEDS: LORAZEPAM 2 MG/ML PO PRN (15:36)
[2024-03-14] MEDS: IPRATROPIUM INH SCH (17:34)
[2024-03-14] MEDS: ALBUTEROL INH SCH (17:34)
[2024-03-14 18:12] VITALS: BP 107/80; PULSE 110
[2024-03-17] MEDS ORDERED: BISACODYL 10 MG RECTAL SCH (09:00)
== END 2024-03-14 22:57 | disposition expired | DRG 951 ==
LOC: KA.MS 08:05
PROVIDERS: ADMIT Family Medicine Hospice and Palliative Medicine; ATTEND Family Medicine Hospice and Palliative Medicine
DX: Z51.5 Encounter for palliative care (principal); J44.9 Chronic obstructive pulmonary disease, unspecified; Z66 Do not resuscitate; Z75.5 Holiday relief care
CPT/HCPCS: A9270-GY; J7620-GY